=== PATIENT | female | born 1985 | race American Indian/Alaskan Native ===

== ENCOUNTER 2024-11-09 13:50 | Emergency (ER) | payer OTHER, SELFPAY ==
[2024-11-09 13:51] VITALS: BP 126/87
[2024-11-09 14:09] LABS: % Basophils 0.6 % (0-2); % Eosinophils 2.5 % (0-6); % Immature Granulocytes 0.4 % (0-0.5); % Lymphocytes 24.2 % (20.5-51.1); % Monocytes 4.6 % (1.7-9.3); % Neutrophils 67.7 % (42.2-75.2); Absolute Basophils 0.1 10^3/uL (0-0.2); Absolute Eosinophils 0.2 10^3/uL (0-0.7); Absolute Lymphocytes 1.9 10^3/uL (1.2-3.4); Absolute Monocytes 0.4 10^3/uL (0.1-0.6); Absolute Neutrophils 5.4 10^3/uL (1.4-6.5); Mean Corpuscular Hgb 31.2 pg (27.0-31.0); Mean Corpuscular Volume 89.1 fL (81.0-99.0); Mean Platelet Volume 8.9 fL (7.4-10.4); Nucleated Red Blood Cells % 0 %; Platelet Count 252 10^3/uL (130-400); Red Blood Cell Count 4.49 10^6/uL (4.20-5.40); Red Cell Dist. Width 11.8 % (11.5-14.5)
[2024-11-09 14:20] LABS: HCG, Serum Qualitative Screen Negative
[2024-11-09 14:26] LABS: ALT (SGPT) 14 U/L (0-35); AST (SGOT) 24 U/L (14-36); Albumin 4.4 g/dl (3.5-5.0); Alkaline Phosphatase 80 U/L (38-126); Blood Urea Nitrogen 6 mg/dl (7-17); Calcium 9.2 mg/dl (8.4-10.2); Carbon Dioxide 23 mmol/L (22-30); Chloride 103 mmol/L (98-107); Glucose 111 mg/dl (70-99); Lipase 261 U/L (23-300); Sodium 136 mmol/L (135-145); Total Bilirubin 0.5 mg/dl (0.2-1.3); Total Protein 6.8 g/dl (6.3-8.2); eGFR > 60.00
--- NOTE | 2024-11-09 16:24 | ED.GENMED ---
History of Present Illness
General
Chief Complaint: Abdominal Pain
Time Seen by Provider: 11/09/24 16:23
History of Present Illness
History of Present Illness:
TIME OF INITIAL ENCOUNTER: 4:30 PM no significant past medical history
HPI: The patient initially went to urgent care was told to come here for further evaluation. She started having right flank pain with radiation to the right groin region yesterday. She has no change in her appetite today however she does report
decreased appetite over the past couple of months. She states that at urgent care there is some questionable signs of infection and they are sending it for culture and they placed her on antibiotics. She tends to point over the right iliac crest
locating her pain.
EXAM:
GENERAL: Well appearing in no distress
HEENT: Moist oral mucosa
CARDIOVASCULAR: No murmurs, normal heart rate, regular rhythm, No chest wall tenderness
PULMONARY: No respiratory distress, breath sounds are clear and equal
ABDOMEN: Soft with no peritoneal signs, no tenderness other than minimal if any right lower quadrant tenderness
BACK: No significant CVA tenderness
NEUROLOGIC: Excellent strength all extremities, no coordination deficits
PSYCHIATRIC: Appropriate mental status, normal insight and judgement
EXTREMITIES: Nontender, no edema, moves all extremities equally
SKIN: No rash, no lesions
NUMBER AND COMPLEXITY OF PROBLEMS ADDRESSED AT THE ENCOUNTER
� Chronic conditions affecting care: No significant past medical history
� Acute Exacerbation and/or Progression of Chronic Illness: This is an acute problem
� Differential Diagnosis includes: Musculoskeletal abdominal wall etiology, oblique strain, ureteral stone/colic, UTI/pyelonephritis (urine pending from urgent care), appendicitis less
AMOUNT AND/OR COMPLEXITY OF DATA TO BE REVIEWED AND ANALYZED
� I performed an independent evaluation of and my interpretation is:
EKG:
CT: The patient does have a 3 mm nonobstructing stone in the right kidney with mild asymmetric distention of the intrarenal collecting system
X-rays:
Laboratory Studies: White count 8.0, chemistries including LFTs and lipase and hCG were all negative.
Other:
� Review of other/old records: I reviewed records, the patient was diagnosed with shingles in 2020
� Clinical information was obtained by an independent historian: I spoke to at bedside
� Prescriptions/Medications Considered but not given: Offered and considered IV medication however the patient declines
� Further testing considered but not performed:
RISK OF COMPLICATIONS AND/OR MORBIDITY OR MORTALITY OF PATIENT MANAGEMENT
� Social determinants of health affecting care: Lives at home
� Discussion with other providers:
� Escalation of care including admission/observation vs risk of discharge considered: The patient's blood work is unremarkable. She only wants Motrin for pain. Will obtain CT imaging to evaluate for ureteral stone.
ANY OTHER UPDATES:
7:35 PM: The patient reports no improvement after Motrin was given but overall feels improved. She is very hungry and wants to go home. Recommend given the abnormal CT finding to follow-up with urologist as well however the CT findings does not
clearly correlate with the patient's symptoms.
Past History
Past History
ED Past Medical History: None
ED Past Surgical History: None
Social History
Tobacco: Non-smoker
Alcohol: None
Drug: None
Phy Exam
Physical Exam
Physical Exam:
See HPI
Course
Orders/Labs/Results
Orders:
Orders
11/09/24 13:55
Test Result ONCE
11/09/24 14:04
Complete Blood Count/With Diff Urgent
Comprehensive Metabolic Panel Urgent
HCG, Serum Qualitative Screen Urgent
Comment: Notify provider if positive test present
Lipase Urgent
11/09/24 17:08
Ibuprofen [Motrin] 600 mg PO NOW STA
11/09/24 17:09
CT Abd/pel Without Iv Or Oral Urgent
Comment:
Reason For Exam: R flank pain
Abnormal Lab Results
11/09/24
14:04
MCH 31.2 H pg
(27.0-31.0)
BUN 6 L mg/dl
(7-17)
Glucose 111 H mg/dl
(70-99)
11/09/24 14:04
11/09/24 14:04
Vital Signs
Initial and Last Documented VS:
Initial Vital Signs
Temp Pulse Resp BP Pulse Ox
36.8 C 79 16 126/87 100
11/09/24 13:51 11/09/24 13:51 11/09/24 13:51 11/09/24 13:51 11/09/24 13:51
Last Documented Vital Signs
Temp Pulse Resp BP Pulse Ox
36.8 C 79 16 126/87 100
11/09/24 13:51 11/09/24 13:51 11/09/24 13:51 11/09/24 13:51 11/09/24 13:51
*Critical Care Note
Total Time (30-74mins, 75-104mins- exclusive of procedures): Not Applicable
ED Attending Note
-
Portions of this chart may have been created with voice recognition software.� Occasional wrong word or��sound alike� substitutions may have occurred due to the inherent limitations of voice recognition software.
Discharge Plan
Departure
Patient Disposition: Home (Routine Discharge)
Date of Disposition: 11/09/24
Time of Disposition: 19:38
Patient with high blood pressure during this ER visit?: Yes
Discharge Problem:
Acute flank pain
Instructions: Flank Pain ED
Prescriptions:
No Action
meclizine 25 MG tablet
25 mg PO TID PRN (Reason: dizzy) Qty: 12 0RF
methylprednisolone [Medrol (Aditya)] 4 MG tablets,dose pack
4 tab PO . DIRECT Qty: 1 0RF
Referrals:
Ilya Solano MD [Family Provider] -
Kishan Fritz MD [Active] - Follow up in 2-3 days
Activity Restrictions/Additional Instructions:
The cause of your symptoms is unclear. Your white blood cell count and other basic labs are normal. The CAT scan of your abdomen pelvis shows a stone which is 3 mm inside of the right kidney. This would likely not be the cause of your symptoms.
However there was some mild asymmetric distention of the right intrarenal collecting system which to me seems distal to the stone. Therefore the cause of your symptoms is unclear but could be as simple as a muscle strain. Given the abnormality on
CT I am recommend that you follow-up with a urologist such as Dr. Fritz. Await the urine culture from urgent care. Continue antibiotics as prescribed by them.
Interventions
Interventions:
*Risk Screen - Suicide Last Done: 11/09/24 13:51
*General Assessment Last Done: 11/09/24 13:51
*Neglect/Abuse Screening Last Done: 11/09/24 13:51
ED- Fall Risk Assessment Last Done: 11/09/24 16:56
*ED COVID-19 Vaccine History Last Done: 11/09/24 13:51
JS-Blhzct-Gwaerjctbd Assessment Last Done: 11/09/24 16:58
Discharge Date and Time
Print Language: MALAYSIAN
[2024-11-09 16:56] VITALS: BMI 23.4
[2024-11-09] MEDS: MOTRIN 600 MG PO (17:18)
[2024-11-09 19:54] VITALS: BP 120/76
== END 2024-11-09 19:55 | disposition home or self-care (01) ==
LOC: EMR 13:50
PROVIDERS: Emergency Medicine; EMERGENCY PHYSICIAN Emergency Medicine; FAMILY PHYSICIAN Internal Medicine
DX: R10.9 Unspecified abdominal pain (principal)
CPT/HCPCS: 99284; 74176; 80053; 83690; 84703; 85025

== ENCOUNTER → 2024-12-03 07:46 | Outpatient (REF) | payer OTHER, SELFPAY | LOC: RAD 07:46 | PROVIDERS: ATTENDING PHYSICIAN Surgery; FAMILY PHYSICIAN Internal Medicine | DX: R10.11 Right upper quadrant pain (principal) | CPT/HCPCS: 76700 ==

== ENCOUNTER 2024-12-22 06:16 | Day surgery (SDC) | payer OTHER, SELFPAY ==
[2024-12-22] VITALS (10 sets, daily range): BP systolic 108–126; BP diastolic 68–109; BMI 26.1
[2024-12-22] MEDS: NORMOSOL-R/PLASMALYTE-A 1000 IV (10:04)
[2024-12-22] MEDS: TYLENOL 1000 MG PO (10:04)
--- NOTE | 2024-12-22 10:41 | W.SUR.PREOP ---
Pre-Operative Surgical Note
-
I have examined this patient prior to the performance of the scheduled procedure. Will move forward with an open umbilical hernia repair with mesh.
The patient's condition is unchanged from the time of the current History and
Physical and the patient is able to undergo the scheduled procedure.
Risks/Benefits/Alternatives, expected postoperative course and possible complications (bleeding, infection, injury to surrounding structures, acute/chronic pain) discussed at length. Patient wishes to proceed with surgery. All questions answered.
Consent obtained.
--- NOTE | 2024-12-22 12:15 | W.IMMPOSTOP ---
Surgical Immed Post Op Note
-
Primary Surgeon: Logan Humphrey MD
Assisting Surgeon: None
Pre-op Diagnosis: Umbilical hernia
Post-op Diagnosis: Same
Procedure Performed: Open umbilical hernia repair with onlay mesh
Anesthesia Type: Local/MAC
Specimen / Cultures: None
Estimated Blood Loss: 3 cc
Complications: None
Operative Findings: 2 cm umbilical defect, unable to develop good preperitoneal plane, defect closed transversely with x4 interrupted 0 PDS suture and backloaded onto a 5 x 5 cm Bard soft uncoated polypropylene mesh.
--- NOTE | 2024-12-22 12:18 | OR.RPT ---
Operative Report
Operative Report
Patient Name: Elsa Herrera
: 1985
Date of Operation: 12/22/2024
Preoperative Diagnosis: Umbilical hernia
Postoperative Diagnosis: Same
Procedure(s):
Open umbilical hernia
Surgeon(s):
Dr. Logan Humphrey
Business Department Chair(s):
None
Anesthesia: Local/MAC
Estimated Blood Loss: 3 cc
Urine Output: None
Drains/Lines/Implants: 5 cm round Bard Soft uncoated polypropylene mesh
Specimens: None
Indication for surgery:
The patient has a symptomatic umbilical hernia. After review of their therapeutic options, they elected to pursue open repair.
Findings at the time of surgery:
Operative Findings: 2 cm umbilical defect, unable to develop good preperitoneal plane, defect closed transversely with 4 interrupted 0 PDS suture and backloaded onto a 5 x 5 cm Bard soft uncoated polypropylene mesh.
Details of the operation:
After successful induction of anesthesia, the patient was prepped and draped in the supine position. A team timeout was performed confirming administration of DVT prophylaxis, IV antibiotics and SCDs. The skin was anesthestized with 0.25% Marcaine
and an infraumbilical incision was made and dissection carried down to the fascia. The hernia sac was then encircled and carefully dissected off of the umbilical stalk before it was returned to the abdomen. the hernia sac was violated so th it
was closed with a running 3-0 Vicryl suture after confirming no injury to the underlying tissues and viscera. The defect measured 2 cm. We initially attempted to dissect a preperitoneal plane but so we elected to do an onlay repair instead so a
pocket large enough to accommodate the 5 x 5 cm mesh was made to ensure the mesh laid completely flat. The defect was then closed in the transverse direction using x4 0 PDS sutures, whose tails were then backloaded onto the mesh and then tied
down-closing the defect and securing the mesh at the same time. The umbilical stalk was then tacked down to the fascia with a 3-0 Vicryl suture. The dermis was then approximated with interrupted 3-0 Vicryl sutures followed by Dermabond. The
patient returned to the Recovery Room in stable condition. Sponge and instrument counts were correct. No specimens sent to Pathology.
I was the attending physician and performed the procedure with no assistance. I was present for all portions of the case
Logan Humphrey MD
[2024-12-22] MEDS: DILAUDID 0.5 MG IV (12:51)
== END 2024-12-22 14:37 | disposition home or self-care (01) ==
LOC: SDS 06:16
PROVIDERS: ATTENDING PHYSICIAN Surgery
DX: K42.9 Umbilical hernia without obstruction or gangrene (principal)
CPT/HCPCS: 49591